=== PATIENT | male | born 1955 | race Caucasian/White ===

== ENCOUNTER 2017-09-30 06:15 | Inpatient (IN) | payer BC ==
[2017-09-03 08:48] VITALS: Ht 165.1 cm; Wt 85.1 kg
--- NOTE | 2017-09-03 09:26 | PAT Medication Instructions ---
Service Date Sep 03, 2017. Current Home Medication List Aspirin (Aspirin Ec), 81 MG PO QAM Brimonidine Tartrate (Topical) (Mirvaso), 1 DOSE TOP QAM Cholecalciferol (Vitamin D3), 1 TAB PO QAM Diclofenac (Voltaren), 75 MG PO QAM Ibuprofen Tab (Advil), 400-600 MG PO Q4H PRN for PRN Psyllium (Metamucil), 1 DOSE PO QAM Medication Instructions For Your Scheduled Surgery -Contact your surgeon for instructions for: Diclofenac (Voltaren), 75 MG PO QAM Ibuprofen Tab (Advil), 400-600 MG PO Q4H PRN for PRN - Hold the following medications 24 hours prior to surgery: Brimonidine Tartrate (Topical) (Mirvaso), 1 DOSE TOP QAM - Hold the following medications the morning of surgery: Psyllium (Metamucil), 1 DOSE PO QAM Cholecalciferol (Vitamin D3), 1 TAB PO QAM - Take the following medications the morning of surgery with a sip of water: Aspirin (Aspirin Ec), 81 MG PO QAM If you have any questions please call us at [phone] or [phone] or [phone]
--- NOTE | 2017-09-03 10:07 | DIAGNOSTIC IMAGING REPORT ---
CHEST 2 VIEWS ROUTINE HISTORY: 62 years-old Male PAT preoperative exam. No acute chest complaints. COMPARISON: None available TECHNIQUE: PA and lateral views of the chest FINDINGS: Cardiac mediastinal and hilar silhouettes are within normal limits. Atherosclerosis of the aorta. Lungs are mildly hyperinflated. No pneumothorax, pleural effusion, focal airspace consolidation or overt pulmonary edema. The bones of the chest appear grossly intact. Degenerative changes are seen within the shoulders and spine. IMPRESSION: Mild hyperinflation without acute process. The above report was generated using voice recognition software. It may contain grammatical, syntax or spelling errors. Electronically signed by: Sohan Avila M.D. 09/03/2017 10:05 AM Dictated Date/Time: 09/03/2017 10:04 AM
[2017-09-03 11:12] LABS: BASO % 0.2 %; BASO ABS # 0.01 K/uL (0-0.2); EOS % 2.9 %; EOS ABS # 0.14 K/uL (0-0.5); HEMATOCRIT 43.8 % (42-52); HEMOGLOBIN 15.3 g/dL (14.0-18.0); LYMPH % 34.8 %; MEAN CELL VOLUME 95.2 fL (80-100); MEAN CORPUSCULAR HEMOGLOBIN 33.3 pg (25-34); MEAN CORPUSCULAR HGB CONC 34.9 g/dl (32-36); MEAN PLATELET VOLUME 9.5 fL (7.4-10.4); MONO ABS # 0.44 K/uL (0.11-0.59); NEUT % 53.1 %; NEUT ABS # 2.59 K/uL (1.4-6.5); PLATELET COUNT 270 K/uL (130-400); RED CELL DISTRIBUTION WIDTH CV 12.5 % (11.5-14.5); RED CELL DISTRIBUTION WIDTH SD 43.2 fL (36.4-46.3); WHITE BLOOD COUNT 4.88 K/uL (4.8-10.8)
[2017-09-03 11:20] LABS: CALCIUM 9.8 mg/dl (8.5-10.1); CREATININE 1.07 mg/dl (0.60-1.40); POTASSIUM 4.6 mmol/L (3.5-5.1)
[2017-09-03 11:24] LABS: INR 0.9 (0.9-1.1); PTT PATIENT 25.6 SECONDS (21.0-31.0)
--- NOTE | 2017-09-27 10:09 | HISTORY & PHYSICAL EXAMINATION ---
DATE OF ADMISSION: 09/30/2017 CHIEF COMPLAINT: Right knee pain and instability. HISTORY OF PRESENT ILLNESS: The patient is a 62-year-old gentleman who presents for surgical treatment of his right knee. He has got a long history of right knee pain and discomfort dating back to 30 years ago when he had an injury playing football. He had an open meniscectomy done by Dr. Peña at that time. Over the years, he has developed persistent pain, discomfort and instability in his knee. He has been treated with injections, which provided minimal relief anymore. Pain has become more debilitating. It is affecting his quality of life. His knee gives out. Does not feel stable. The more he walks, the more it hurts. It does swell. He would like to have it fixed. PAST MEDICAL HISTORY: Gastroesophageal reflux disease. PAST SURGICAL HISTORY: Include right knee open knee meniscectomy 30 years ago. ALLERGIES: None. CURRENT MEDICATIONS: 1. Diclofenac. 2. Aspirin 81 mg daily. 3. Vitamin D. 4. Metamucil. 5. Motrin. SOCIAL HISTORY: Includes a 62-year-old male. He is still working. He is . He is from [place]. Does not smoke. FAMILY HISTORY: Noncontributory. REVIEW OF SYSTEMS: Negative for diabetes, neurologic problems, vascular problems, or bleeding disorders. No chest pain or shortness of breath. No history of DVT or PE. PHYSICAL EXAMINATION: GENERAL: Reveals a healthy, pleasant, middle-aged male. He looks to be in good health. HEENT: Benign. NECK: Supple. No lymphadenopathy. LUNGS: Clear to auscultation. HEART: Has a regular rate and rhythm. ABDOMEN: Soft, nontender, nondistended. EXTREMITIES: Grossly neurovascularly intact except as follows: Examination of the right knee reveals the patient walks with a significant antalgic gait. He has got varus alignment to his knee. He has got a well healed oblique incision medially. When we weightbears, he does have a varus thrust. Range of motion is 5 to about 120. He has got a positive Rashida. No pain with hip motion. X-RAYS: X-rays of the right knee reviewed. It shows advanced right knee DJD. He has got complete loss of his medial joint space, has got subchondral sclerosis. He has got osteophytes in the medial femoral condyle and medial tibial plateau. 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 He has failed conservative treatment and would like to have his right knee replaced. PLAN: We will take him to the operating room and do a right total knee replacement. The risks and benefits of this procedure were explained to the patient including but not limited to DVT, PE, , infection, neurological injury, vascular injury, bleeding problem, pain, limited range of motion, stiffness, failure to relieve symptoms, incomplete relief of symptoms, need for further surgery in the future, fracture, leg length inequality, nerve palsy, need for blood transfusion, etc. The patient understands and desires to proceed. Informed consent was obtained. We did talk to him about holding his diclofenac 2 weeks preop. As far as discharge plans, he is planning to be discharged to home using [facility] home health program. VIANEY
[~2017-09-30] VITALS: Ht 165.1 cm; Wt 85.1 kg
[2017-09-30] VITALS (7 sets, daily range): BP systolic 107–140; BP diastolic 64–94; PULSE 59–83; TEMP 36.4–37.2; O2SAT 97–99
[~2017-09-30 06:15] MED LIST: ACETAMINOPHEN 500 MG TAB PO SCH; ASPI81TA28 PO; BRIM1GEL TOP; BUPIVACAINE LIPOSOME 266 MG, BUPIVACAINE/EPINEPHRINE INJ 50 ML, SODIUM CHLORIDE 0.9% PF... INFIL SCH; CEFAZOLIN 2000MG IV PUSH 15 ML IV SCH; CHOL1000 PO; DICL-201 PO; FAMOTIDINE 20 MG TAB PO SCH; GABAPENTIN 600 MG PO SCH; IBUP-103 PO; LACTATED RINGER'S 1000ML 1,000 ML IV SCH; LACTATED RINGER'S 1000ML IV SCH; METOCLOPRAMIDE HCL 10 MG TAB PO SCH; PSYL48.59 PO; SCOPOLAMINE 1.5 MG TDSY TD SCH; TRANEXAMIC ACID INJ 1,000 MG x 1 Bag Preop IV SCH
[2017-09-30] MEDS ORDERED: BUPIVACAINE 0.25% 30 ML VIAL ONE ×2 (07:10→08:55)
[2017-09-30] MEDS ORDERED: BUPIVACAINE 0.5 % 5 MG/1 ML PF 10ML VIAL ONE (07:10)
[2017-09-30] MEDS ORDERED: MIDAZOLAM HCL 1 MG/ML 2ML VIAL ONE ×2 (07:18→10:24)
[2017-09-30] MEDS ORDERED: PROPOFOL IV EMULSION 10 MG/ML 20 ML VIAL IV ONE (07:18)
--- NOTE | 2017-09-30 08:43 | History & Physical Bridge Note ---
H&P Re-Evaluation Bridge Note: I have examined the patient, reviewed the History & Physical and in the interval since the performance of the History & Physical I have noted the following changes of clinical significance: No changes noted
[2017-09-30] MEDS ORDERED: SODIUM CHLORIDE 0.9% PF 50 ML VIAL ONE (08:55)
[2017-09-30] MEDS ORDERED: BUPIVACAINE LIPOSOME 1/3% 266 MG/20 ML VIAL INFIL ONE (08:55)
[2017-09-30] MEDS ORDERED: BACITRACIN 50000 UNIT VIAL ONE (08:55)
[2017-09-30] MEDS ORDERED: EpINEphrine INJ 1MG/ML AMP 1 MG/ML AMP ONE (08:56)
[2017-09-30] MEDS ORDERED: HYDROmorphone INJ 1 MG/ML SYR IV PRN (09:15)
[2017-09-30] MEDS ORDERED: MEPERIDINE HCL 25 MG/ML CARP IV PRN (09:15)
[2017-09-30] MEDS ORDERED: FENTANYL CITRATE INJ 50 MCG/1 ML 2 ML VIAL IV PRN (09:15)
[2017-09-30] MEDS ORDERED: ATROPINE SULFATE 0.1 MG/ML 5ML SYR IV PRN (09:15)
[2017-09-30] MEDS ORDERED: EpHEDrine SULFATE INJ 50 MG/ML AMP IV PRN (09:15)
[2017-09-30] MEDS ORDERED: LABETALOL HCL IV 5 MG/ML 20ML IV PRN (09:15)
[2017-09-30] MEDS ORDERED: ONDANSETRON INJ 2 MG/ML 2 ML VIAL IV PRN ×2 (09:15→10:45)
[2017-09-30] MEDS ORDERED: PHENYLEPHRINE 100MCG/ML 5ML SYR ONE (09:17)
--- NOTE | 2017-09-30 10:43 | [facility] Post Operative Brief Note ---
Immediate Operative Summary Operative Date Sep 30, 2017. Pre-Operative Diagnosis Right Knee Degenerative Joint Disease Post-Operative Diagnosis Same as preop Procedure(s) Performed Right Total Knee Arthroplasty Surgeon Dr. Henry Test Lead Surgeon(s) Alin Roth PA-C Estimated Blood Loss 50 ml Findings Consistent with Post-Op Diagnosis Fluids (cc crystalloids) 1500 cc Specimens A. Right Knee Bone and Tissue Drains None Anesthesia Type MAC Spinal Regional Complication(s) none Disposition Accompanied Pt To Recover: no Disposition: Recovery Room / PACU
[2017-09-30] MEDS ORDERED: CEFAZOLIN IV 2,000 MG in DEXTROSE 5% 50ML 50 ML IV SCH (10:45)
[2017-09-30] MEDS ORDERED: SILVER SULFADIAZINE 1% CR 50 GM JAR EXT PRN (10:45)
[2017-09-30] MEDS ORDERED: MoRPHine SULFATE 2 MG/ML CARP IV PRN (10:45)
[2017-09-30] MEDS ORDERED: ZOLPIDEM TARTRATE 5 MG TAB PO PRN (10:45)
[2017-09-30] MEDS ORDERED: BISACODYL 10 MG SUPP PR PRN (10:45)
[2017-09-30] MEDS ORDERED: ALUMINUM/MAGNESIUM/SIMETH (MAALOX MAX) 30 ML UDC PO PRN (10:45)
[2017-09-30] MEDS ORDERED: TAMSULOSIN HCL 0.4 MG CAP PO PRN (10:45)
[2017-09-30] MEDS ORDERED: METOCLOPRAMIDE HCL INJ 5 MG/ML 2 ML VIAL IV PRN (10:45)
[2017-09-30] MEDS ORDERED: MAGNESIUM HYDROXIDE SUSP 30 ML UDC PO PRN (10:45)
[2017-09-30] MEDS ORDERED: DiphenhydrAMINE HCL 50 MG/ML VIAL IV PRN (10:45)
--- NOTE | 2017-09-30 11:12 | OPERATIVE REPORT ---
DATE OF OPERATION: 09/30/2017 SURGEON: Dr. Erik Henry. PLASMA CENTER NURSE: CYN Ortega PREOPERATIVE DIAGNOSIS: Right knee degenerative joint disease with chronic anterior cruciate ligament deficiency. POSTOPERATIVE DIAGNOSIS: Same. PROCEDURE PERFORMED: Right cemented posterior stabilized total knee arthroplasty. COMPLICATIONS: None. ESTIMATED BLOOD LOSS: 50 mL. FLUID REPLACEMENT: 1500 mL crystalloid fluid replacement. ANESTHESIA: Spinal with adductor canal block. DRAINS: None. SPECIMENS: Right knee sent for pathology. TOURNIQUET TIME: 55 minutes at 300 mmHg. ANESTHESIA: Spinal with adductor canal block. OPERATIVE INDICATIONS: The patient is a 62-year-old gentleman, who has had a long history of right knee problems dating back to an injury 30+ years ago while playing softball. He had an ACL tear at that time and had an open meniscectomy. He has developed progressive and persistent pain in his right knee that has gradually gotten worse over the past 15-20 years. X-rays show advanced DJD. He failed conservative treatment. He elected to proceed with operative treatment. OPERATIVE FINDINGS: Operative findings revealed advanced right knee DJD. He had extensive grade 4 changes in all of 3 compartments, most severe in the medial side. He had a chronic ACL deficiency. Large osteophytes around the entire femur. OPERATIVE IMPLANTS: Operative implants consisted of: 1. Biomet Vanguard size 70 right posterior stabilized femoral component. 2. Biomet size 75 tibial tray. 3. A 12-mm posterior stabilized polyethylene insert. 4. A 31 x 8 all poly patella. OPERATIVE PROCEDURE: The patient was taken to the operating room, identified and placed on the operating table in the supine position. All contact areas were appropriately padded. IV antibiotics were provided by anesthesia team. A spinal anesthetic and adductor canal block had been provided in the holding area. Carrero catheter was placed in sterile fashion. Right thigh tourniquet was then placed and the right lower extremity was then prepped and draped in the usual sterile fashion. The right leg was elevated and exsanguinated with Esmarch and tourniquet was placed at 300 mmHg. An anterior approach to the right knee was then performed through longitudinal incision centered over the patella. Sharp dissection was carried through the subcutaneous tissues down to the level of the extensor mechanism. A medial parapatellar arthrotomy incision was made. Some subperiosteal dissection was carried out medially. The fat pad was resected from beneath the patellar tendon. Lateral patellofemoral ligament was released. The patella was everted and knee was flexed. The osteophytes were taken off the distal femur. The ACL was chronically torn. The PCL was released from the distal femur and the tibia subluxated anteriorly. The external tibial alignment jig was then placed in the anterior face of the tibia and adjusted 16 mm medially. Proximal tibial cut was made to remove just a millimeter of bone from the most deficient aspect of the posteromedial tibial plateau. Some large osteophytes were taken off medial and posteromedially. Tibia was sized to a size 75. Attention was then drawn to the femur. The distal femur was entered with a sharp drill. Intramedullary canal was suctioned. A right 6-degree valgus cutting guide was placed. Distal femoral cutting block was pinned in place. Distal femoral cut was made to take an additional 3 mm of bone off the distal femur. The femur was then sized to a size 70. The AP cutting block was pinned parallel to the epicondylar axis, which was 3 degrees of external rotation. The anterior cut, anterior chamfer cut, posterior cut, and posterior chamfer cuts were made. Box cutting guide was placed and adjusted slightly lateral and the box cut was made. The knee was flexed. The remnants of the medial and lateral meniscus were excised. The osteophytes were taken off the posterior aspect of the femur. Trial femoral component was placed. Tibial tray was pinned in maximum external rotation and the drill and stem punch were used to create defect in the proximal tibia for the tibial tray. The knee was then trialed and the 12-mm insert fit most appropriately. Attention was then drawn to the patella. The patella was cleaned of all soft tissues. Patellar thickness measured 25 mm in thickness and it was cut down to 14. It was sized to a size 31 patella. Lug holes were drilled for a 31 patella. Lateral osteophyte was removed. Patella button was placed. Knee was taken through range of motion and the patella tracked nicely with no thumbs test. Attention was then drawn toward placement of the permanent components. All trial components were removed. Bone plug was placed in the distal femur to limit blood loss. A double batch of Palacos G cement was mixed. A right size 70 posterior stabilized femoral component, size 75 tibial tray, a 12-mm posterior stabilized polyethylene insert, and a 31 x 8 all poly patella were then cemented in place. Knee was brought out into full extension until cement hardened. A final cement check was then performed. Pericapsular tissues were injected with a total of 100 mL of a combination of 20 mL of Exparel, 30 mL of normal saline, and 50 mL of 0.25% Marcaine with epinephrine. The patient did receive 1 gram of tranexamic acid. The tourniquet was then let down for final tourniquet time of 55 minutes. Hemostasis was assured with the use of electrocautery. The wound was once again irrigated. The extensor mechanism was then closed with a combination of #1 PDS suture and #1 Vicryl suture in a [id number] fashion. Extensor mechanism was checked and found to be intact. The subcutaneous tissues were then closed with 2-0 Dexon suture in buried interrupted fashion. Skin was closed skin linda. Leg was then cleaned and dried and a sterile dressing of Xeroform, 4 x 4, sterile cast padding and Myles bandage were applied. The patient then transferred to the recovery room in stable condition. The patient tolerated the procedure well with no complications. All needle and sponge counts were correct at the end of the operation. I attest to the content of the Intraoperative Record and any orders documented therein. Any exception s are noted below.
--- NOTE | 2017-09-30 11:37 | DIAGNOSTIC IMAGING REPORT ---
RIGHT KNEE 2 VIEWS History: Right total knee arthroplasty. Degenerative arthritis. Postop. FINDINGS: The patient is status post a right total knee arthroplasty. The hardware is intact. No fracture or dislocation. Skin linda are in place. IMPRESSION: Right total knee arthroplasty. No evidence for hardware complication. Electronically signed by: Domenico Beatty M.D. 09/30/2017 11:35 AM Dictated Date/Time: 09/30/2017 11:35 AM
--- NOTE | 2017-09-30 13:12 | Anesthesiology Progress Note ---
Anesthesia Post Op Note Date & Time Sep 30, 2017 at 13:12 Vital Signs Pain Intensity: 0 Vital Signs Past 12 Hours Date Time Temp Pulse Resp B/P (MAP) Pulse Ox O2 Delivery O2 Flow Rate FiO2 09/30/17 12:15 36.4 60 16 107/69 (82) 98 Nasal Cannula 2.0 09/30/17 11:45 Nasal Cannula 2.0 09/30/17 11:45 36.4 59 16 115/64 (81) 98 Nasal Cannula 2.0 09/30/17 11:45 Nasal Cannula 2.0 09/30/17 11:35 58 14 99/55 (65) 98 Nasal Cannula 2 09/30/17 11:25 36.9 78 16 99/58 (67) 100 Nasal Cannula 2 09/30/17 11:15 63 18 101/70 100 Nasal Cannula 2 09/30/17 11:05 56 12 97/67 (75) 100 Nasal Cannula 2 09/30/17 10:55 61 22 96/54 (63) 99 Nasal Cannula 2 09/30/17 10:47 36.4 75 18 97/61 (73) 99 Nasal Cannula 2 09/30/17 06:43 37 83 20 140/94 97 Room Air Notes Mental Status: alert / awake / arousable, participated in evaluation Pt Amnestic to Procedure: Yes Nausea / Vomiting: adequately controlled Pain: adequately controlled Airway Patency, RR, SpO2: stable & adequate BP & HR: stable & adequate Hydration State: stable & adequate Neuraxial Anesthesia: was administered, sensory block is resolving Anesthetic Complications: no major complications apparent
[2017-09-30] MEDS: D5W AND 1/2NSS + 20MEQ KCL 1,000 ML IV SCH ×2 (13:15→22:24)
[2017-09-30] MEDS: FERROUS GLUCONATE 324 MG TAB PO SCH ×3 (13:16→18:37)
[2017-09-30] MEDS: ACETAMINOPHEN 500 MG TAB PO SCH ×2 (14:20→21:17)
[2017-09-30] MEDS: KETOROLAC TROMETHAMINE 30 MG/ML VIAL IV. SCH ×2 (14:21→21:15)
[2017-09-30] MEDS: CHECK SCOPOLAMINE PATCH PLACEMENT SCH (15:39)
[2017-09-30] MEDS: CEFAZOLIN IV 2,000 MG in SYRINGE 0 ML IV SCH (15:41)
[2017-09-30] MEDS ORDERED: INFLUENZA ADMINISTRATION CHARGE ONE (16:15)
[2017-09-30] MEDS ORDERED: INFLUENZA VIRUS QUAD VACCINE 0.5 ML SYR IM. ONE (16:15)
[2017-09-30] MEDS ORDERED: TRANEXAMIC ACID INJ 1,000 MG in SODIUM CHLORIDE 0.9% 100ML 100 ML IV SCH (17:00)
--- NOTE | 2017-09-30 18:31 | PROGRESS NOTE ---
DATE: 09/30/2017 SUBJECTIVE: A 62-year-old gentleman postop from a right knee replacement. He is doing well. Knee is just a little bit sore and that is it. No chest pain or shortness of breath. Not feeling dizzy or lightheaded. OBJECTIVE: VITAL SIGNS: Temperature 36.4. Vital signs stable. PHYSICAL EXAMINATION: GENERAL: Reveals a pleasant, middle-aged male. He is sitting on the side of his bed and looks pretty comfortable. LUNGS: Clear to auscultation. HEART: Regular rate and rhythm. ABDOMEN: Soft, nontender, nondistended. EXTREMITIES: Grossly neurovascularly intact except as follows: Examination of the right leg reveals the dressing to be clean, dry and intact. His leg is well aligned. He can dorsiflex and plantarflex his foot appropriately. He is neurologically intact. X-RAYS: X-rays of the right knee from recovery room were reviewed. It shows a right cemented posterior stabilized total knee arthroplasty. Components look to be in good position. No signs of problems. It is a fairly rotated film on both the AP and lateral. ASSESSMENT: A 62-year-old male postop from a right knee replacement, doing pretty well. Pain is controlled. He is neurologically intact. PLAN: 1. DVT prophylaxis including thigh-high TEDs, SCDs, and aspirin twice a day. 2. PT/OT. Weightbearing as tolerated. Right total knee protocol. 3. Pain control, doing well with current pain regimen. 4. IV antibiotics x24 hours. 5. Disposition: Plan to discharge to home with [facility] home health program once adequately recovered.
[2017-09-30] MEDS: SENNA 8.6 MG TAB PO SCH (21:15)
[2017-09-30] MEDS: DOCUSATE SODIUM 100 MG CAP PO SCH (21:16)
[2017-09-30] MEDS: TAPENTADOL ER 50 MG TABCR PO SCH (21:16)
[2017-09-30] MEDS: ASPIRIN 81 MG ECTAB PO SCH (21:16)
[2017-10-01] VITALS (9 sets, daily range): BP systolic 108–152; BP diastolic 70–92; PULSE 62–105; TEMP 36.8–37.6; O2SAT 95–100
[2017-10-01] MEDS: CHECK SCOPOLAMINE PATCH PLACEMENT SCH ×3 (00:38→17:06)
[2017-10-01] MEDS: CEFAZOLIN IV 2,000 MG in SYRINGE 0 ML IV SCH (00:39)
[2017-10-01] MEDS: KETOROLAC TROMETHAMINE 30 MG/ML VIAL IV. SCH ×4 (02:02→20:30)
[2017-10-01] MEDS: ACETAMINOPHEN 500 MG TAB PO SCH ×3 (06:16→21:53)
[2017-10-01] MEDS: D5W AND 1/2NSS + 20MEQ KCL 1,000 ML IV SCH (07:33)
[2017-10-01 07:44] LABS: HEMATOCRIT 36.2 % (42-52); HEMOGLOBIN 12.6 g/dL (14.0-18.0); MEAN CORPUSCULAR HEMOGLOBIN 32.7 pg (25-34); MEAN CORPUSCULAR HGB CONC 34.8 g/dl (32-36); MEAN PLATELET VOLUME 8.9 fL (7.4-10.4); PLATELET COUNT 183 K/uL (130-400); RED CELL DISTRIBUTION WIDTH CV 12.7 % (11.5-14.5); RED CELL DISTRIBUTION WIDTH SD 43.5 fL (36.4-46.3); WHITE BLOOD COUNT 8.29 K/uL (4.8-10.8)
[2017-10-01 08:12] LABS: CALCIUM 8.3 mg/dl (8.5-10.1); CREATININE 0.98 mg/dl (0.60-1.40); POTASSIUM 4.2 mmol/L (3.5-5.1)
[2017-10-01] MEDS: FERROUS GLUCONATE 324 MG TAB PO SCH ×3 (08:55→17:06)
[2017-10-01] MEDS: MULTIVITAMIN TAB PO SCH (08:55)
[2017-10-01] MEDS: PANTOprazole SOD 40 MG TAB PO SCH (08:55)
[2017-10-01] MEDS: DOCUSATE SODIUM 100 MG CAP PO SCH ×2 (08:55→20:30)
[2017-10-01] MEDS: PSYLLIUM 58.6% PWD PACK S\\F PO SCH (08:55)
[2017-10-01] MEDS: ASPIRIN 81 MG ECTAB PO SCH ×2 (08:56→20:31)
[2017-10-01] MEDS: CHOLECALCIFEROL 400 INTER.UNIT TAB PO SCH (08:56)
[2017-10-01] MEDS: TAPENTADOL ER 50 MG TABCR PO SCH ×2 (09:01→20:30)
[2017-10-01] MEDS: OXYCODONE HCL IR 5 MG TAB (IMMEDIATE RELEASE) PO PRN (09:01)
--- NOTE | 2017-10-01 17:29 | PROGRESS NOTE ---
DATE: 10/01/2017 SUBJECTIVE: A 62-year-old gentleman postop day #1 from a right knee replacement. He is doing well. He states that he has minimal pain. No chest pain or shortness of breath. Not feeling dizzy or lightheaded. Therapy went well. OBJECTIVE: VITAL SIGNS: Temperature 37.1. Vital signs stable. GENERAL: Physical examination reveals a healthy, pleasant, middle-aged male. He is sitting up in bed and looks pretty comfortable. EXTREMITIES: Examination of the right leg reveals the dressing to be clean, dry and intact. Leg is well aligned. He can dorsiflex and plantarflex his foot appropriately. He is neurologically intact. LABORATORY DATA: Hemoglobin is 12.6. Hematocrit 36.2. Electrolytes are stable. ASSESSMENT: This is a 62-year-old male postop day #1 from a right knee replacement, doing pretty well. Pain is controlled. He is neurologically intact. PLAN: 1. DVT prophylaxis including thigh-high TEDs, SCDs, and aspirin twice a day. 2. PT/OT. Weightbear as tolerated. Right total knee protocol. 3. Pain control. Doing well with current pain regimen. 4. Disposition: Plan to discharge to home with some home health once adequately recovered.
[2017-10-01] MEDS: SENNA 8.6 MG TAB PO SCH (20:31)
[2017-10-01] MEDS ORDERED: ACET-24 PO (21:56)
[2017-10-01] MEDS ORDERED: ASPEC81 PO (21:56)
[2017-10-01] MEDS ORDERED: RXC5 PO (21:57)
[2017-10-02] MEDS: CHECK SCOPOLAMINE PATCH PLACEMENT SCH ×2 (00:08→08:26)
[2017-10-02] MEDS: KETOROLAC TROMETHAMINE 30 MG/ML VIAL IV. SCH ×2 (01:59→09:10)
[2017-10-02] MEDS: ACETAMINOPHEN 500 MG TAB PO SCH (05:24)
[2017-10-02 06:52] VITALS: BP 116/72; PULSE 87; TEMP 37; O2SAT 96
[2017-10-02] MEDS: FERROUS GLUCONATE 324 MG TAB PO SCH (09:08)
[2017-10-02] MEDS: MULTIVITAMIN TAB PO SCH (09:08)
[2017-10-02] MEDS: PANTOprazole SOD 40 MG TAB PO SCH (09:09)
[2017-10-02] MEDS: PSYLLIUM 58.6% PWD PACK S\\F PO SCH (09:10)
[2017-10-02] MEDS: CHOLECALCIFEROL 400 INTER.UNIT TAB PO SCH (09:10)
[2017-10-02] MEDS: ASPIRIN 81 MG ECTAB PO SCH (09:10)
[2017-10-02] MEDS: DOCUSATE SODIUM 100 MG CAP PO SCH (09:10)
--- NOTE | 2017-10-02 09:13 | Discharge Instructions ---
Discharge Instructions Date of Service Oct 02, 2017. Admission Reason for Admission: Right Knee Degenerative Joint Disease Discharge Discharge Diagnosis / Problem: Right Knee Replacement Discharge Goals Goal(s): Decrease discomfort, Improve function, Increase independence, Improve disease control, Therapeutic intervention Activity Recommendations Activity Limitations: per Instructions/Follow-up section Weightbearing Status: Right weightbearing . Instructions / Follow-Up Instructions / Follow-Up ACTIVITY RECOMMENDATIONS: Physical Therapy: * You will go to physical therapy three times each week for four to six weeks after your surgery in order to regain your knee range of motion and to retrain your knee to work properly. * It is just as important to make sure you are getting your knee perfectly straight as it is to regain your knee bend. * Taking a pain pill an hour before therapy can help you have a more productive and comfortable therapy session. Home Exercise: * You were shown a series of exercises (heel props, heel slides, etc.) in the hospital. Do these exercises three to four times each day including the exercises you were shown in physical therapy. Walking: * Get up and walk several times each day. For the first four weeks, try not to stand or walk for more than one hour at a time. If you do stand or walk for more than one hour, you will not hurt anything, but your knee and leg will likely swell. * As you feel comfortable, you may change from the walker or crutches to a cane and then to independent walking. MEDICATIONS: New Medicine: * You will likely be taking one or more of these medications: 1. Oxycodone - A quick and shorter-acting pain medication. Take one to two tablets every four to six hours to lessen your pain. 2. Aspirin - Thins your blood to lessen the chance of forming a blood clot. * The most common side effects of pain medicine and iron are nausea and constipation. If nausea or constipation is too much of a problem or if you have any questions about your new medicines or doses, call [facility] at . We will try to help you manage these issues. VERY IMPORTANT TO READ AND REVIEW" Pain: * The immediate post-operative period after knee replacement surgery is often quite painful. * You are given a prescription for pain medicine. You should take it, as directed, when you need it, especially before physical therapy and before going to bed. Pain that interferes with sleep is very common and can last several months. * You will likely need pain medicine for the first four to six weeks. It will not stop all of the pain. The pain will lessen and as you feel better, you may change to milder pain medicine such as Tylenol. * The most common side effects of pain medicine are nausea and constipation, so don't take more than you need. SPECIAL CARE INSTRUCTIONS: TEDs/Elastic Stockings: * The white elastic stockings help limit swelling and prevent blood clots from forming in your legs. The more you wear them, the more they work. * Wear them for six weeks after knee replacement surgery and four weeks after partial knee replacement. Prevention of Infection: * Take antibiotics one hour before any dental cleaning, dental work, urological procedure, gastrointestinal procedure or any invasive surgery in order to prevent your new joint from getting infected. * You may get the antibiotics from the doctor performing the procedure or you may call our office at before and we will call in a prescription to the pharmacy of your choice. Things to Watch For: * Drainage from the incision site that occurs more than one week after your surgery. * Severely increased knee/leg pain or swelling. * Increased redness at the incision site. * Fever above 102 degrees Fahrenheit. * Unusual chest pain or shortness of breath. * Unusual pain or burning with urination. Call [facility] at with any of the above problems or if you have any questions about your medicines or recovery. FOLLOW UP VISIT: Make an appointment to see your doctor for approximately two weeks after surgery for a progress check and staple removal by calling the office at . Current Hospital Diet Patient's current hospital diet: Regular Diet Discharge Diet Recommended Diet: Regular Diet Procedures Procedures Performed: Right Total Knee Arthroplasty Pending Studies Studies pending at discharge: no Medical Emergencies . Who to Call and When: Medical Emergencies: If at any time you feel your situation is an emergency, please call [phone] immediately. . Non-Emergent Contact Non-Emergency issues call your: Surgeon . "Provider Documentation" section prepared by Erik Henry. . VTE Core Measure Inpt VTE Proph given/why not?: Other Anticoagulation, T.E.D. Stockings, SCD's
[2017-10-02] MEDS: OXYCODONE HCL IR 5 MG TAB (IMMEDIATE RELEASE) PO PRN (09:27)
[2017-10-02] MEDS: TAPENTADOL ER 50 MG TABCR PO SCH (09:27)
--- NOTE | 2017-10-02 09:27 | PROGRESS NOTE ---
DATE: 10/02/2017 SUBJECTIVE: A 62-year-old gentleman postop day 2 from right knee replacement. He is doing well. Pain is controlled. No chest pain or shortness of breath. Not feeling dizzy or lightheaded. OBJECTIVE: VITAL SIGNS: Temperature 37.0. Vital signs stable. PHYSICAL EXAMINATION: GENERAL: Reveals a healthy, pleasant middle-aged male. He is sitting up in bed and looks pretty comfortable. EXTREMITIES: Examination of the right leg reveals the leg to be well aligned. Dressing is clean, dry and intact. He can dorsiflex and plantarflex his foot appropriately. Calf is soft and supple. He is neurologically intact. ASSESSMENT: A 62-year-old gentleman postop day 2 from right knee replacement, doing pretty well. Pain is controlled. PLAN: 1. DVT prophylaxis including thigh-high TEDs, SCDs, and aspirin twice daily. 2. PT/OT. Weight bear as tolerated. Right total knee protocol. 3. Pain control, doing well with current pain regimen. 4. Disposition: Plan to discharge to home with some home health later today.
[2017-10-02 10:38] VITALS: BP 116/72; PULSE 87; TEMP 37; O2SAT 96
--- NOTE | 2017-10-06 15:25 | DISCHARGE SUMMARY ---
ADMITTING PHYSICIAN AND SURGEON: Dr. Henry. 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 SURGERY PERFORMED: Right total knee arthroplasty. SECONDARY DIAGNOSES: Gastroesophageal reflux disease. CONSULTS: None obtained. HISTORY AND PHYSICAL EXAMINATION: Well documented in the patient's chart. HOSPITAL COURSE: The patient was admitted on 09/30/2017 and underwent total knee arthroplasty. He tolerated the procedure well. There were no complications. He was transferred to the PACU postoperatively and later to the orthopedic floor for further care. He was given Ancef for antibiotic prophylaxis and ANNE stockings, SCDs and aspirin for DVT prophylaxis. Hemoglobin, hematocrit and vital signs were monitored during his hospital stay and remained stable. He did not require any blood transfusions. There were no complications. By postoperative day #2, he was tolerating a regular diet. Pain was controlled with oral pain medicine. He was participating in physical therapy. On postoperative day #2, he was discharged home and set up with home health services. He was given printed discharge instructions including new prescriptions for extra strength Tylenol, aspirin and oxycodone. Continue his home medications with the exception of his home dose of aspirin, which was changed. Continue physical therapy, weightbearing as tolerated, ANNE stockings and follow up in 10-12 days or sooner if there are any problems or concerns.
== END 2017-10-02 12:20 | disposition home health service (06) | DRG 470 ==
LOC: C.ACU 06:15 → C.3E 10:47 → ENRESERV 11:24 → CMPBEDREQ 12:07
PROVIDERS: ADMIT Orthopaedic Surgery Sports Medicine; ATTEND Orthopaedic Surgery Sports Medicine
PROC: 0SRC0J9 Replacement of Right Knee Joint with Synthetic Substitute, Cemented, Open Approach (ICD-10-PCS; principal; 2017-09-30 08:50)
DX: M17.11 Unilateral primary osteoarthritis, right knee (principal); K21.9 Gastro-esophageal reflux disease without esophagitis; Z79.82 Long term (current) use of aspirin; Z79.899 Other long term (current) drug therapy